=== PATIENT | female | born 1960 | race American Indian/Alaskan Native ===

== ENCOUNTER 2016-09-12 15:17 | Emergency (ER) | payer BC ==
[2016-09-12 16:19] LABS: Basophils % (Auto) 0.5 % (0.0-1.8); Eosinophils % (Auto) 1.1 % (0.0-4.3); Hematocrit 41.4 % (30.3-42.9); Hemoglobin 13.9 gm/dl (10.1-14.3); Mean Corpuscular HGB Conc 34 % (30-34); Mean Corpuscular Hemoglobin 32 pg (28-32); Mean Corpuscular Volume 94 fl (79-97); Platelet Count 233 K/mm3 (140-440); Red Blood Count 4.39 M/mm3 (3.65-5.03); Red Cell Distribution Width 12.8 % (13.2-15.2); White Blood Count 6.1 K/mm3 (4.5-11.0)
[2016-09-12 16:33] LABS: Partial Thromboplastin Time 31.1 Sec. (24.2-36.6)
[2016-09-12 16:38] LABS: Anion Gap 17 mmol/L; BUN/Creatinine Ratio 21.42; Blood Urea Nitrogen 15 mg/dL (7-17); Calcium 9.4 mg/dL (8.4-10.2); Carbon Dioxide 26 mmol/L (22-30); Chloride 100.2 mmol/L (98-107); Glucose 98 mg/dL (65-100); Potassium 3.9 mmol/L (3.6-5.0); Sodium 139 mmol/L (137-145)
--- NOTE | 2016-09-12 16:46 | Cat Scan Report ---
CT HEAD WITHOUT CONTRAST INDICATION: Numbness in both hands. COMPARISON: 07/19/2015. FINDINGS: Noncontrast head CT demonstrates normal ventricles and sulci without acute or recent infarct, hemorrhage, mass effect or midline shift. No abnormal extra-axial fluid collections. Posterior fossa structures and basilar cisterns appear within normal limits. Symmetric eye globes. Clear paranasal sinuses and mastoid air cells. Intact calvarium. Normal overlying scalp soft tissues. CONCLUSION: No acute intracranial CT abnormality, as described. Thank you for the opportunity to participate in this patient's care.
[2016-09-12 17:07] VITALS: BP 129/73
--- NOTE | 2016-09-12 17:26 | Emergency Department Report ---
ED General Adult HPI - General Chief complaint: Weakness Stated complaint: BLURRED VISION /TINGLING NUMBNESS IN HANDS Time Seen by Provider: 09/12/16 16:38 Source: patient, EMS (ems notes not available at time of chart dictation), RN notes reviewed, old records reviewed Mode of arrival: Stretcher Limitations: No Limitations - History of Present Illness Initial comments: This is a 56-year-old female. She is previously unknown to me. Her primary care doctor is Dr. Jennifer Bledsoe The patient reports a past medical history of hypertension and high cholesterol , and reports taking daily aspirin. 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 Minimal amount of plaque was noted. The patient was seen in consultation with vascular surgery at that time, who recommended 6 month follow-up. The patient has not followed up. The patient presents today with a complaint of resolved binocular blurry N/C vision, sensation of lightheadedness and almost passing out, and tingling around her fingertips. This lasted for a few minutes, and resolved on its own. There is no severe headache, neck pain, chest pain, abdominal pain or shortness of breath. The patient denies leg pain and leg swelling. No recent trips greater than 4 hours. No recent hospital admissions. All of her symptoms have since resolved. -: Sudden Severity scale (0 -10): 0 Consistency: now resolved Improves with: none Worsens with: none Associated Symptoms: malaise, syncope, weakness. denies: confusion, chest pain , cough, diaphoresis, loss of appetite - Related Data Previous Rx's Medication Instructions Recorded Last Taken Type Aspirin [Aspirin TAB] 325 mg PO QDAY #30 tablet 11/12/14 09/12/16 Rx Hydrochlorothiazide [HCTZ] 25 mg PO QDAY #30 tablet 11/12/14 09/12/16 Rx Simvastatin [Zocor TAB] 20 mg PO QHS #30 tablet 11/12/14 09/12/16 Rx Aspirin [Aspirin TAB] 325 mg PO QDAY #30 tablet 07/14/17 Unknown Rx Allergies Allergy/AdvReac Type Severity Reaction Status Date / Time No Known Allergies Allergy Verified 07/19/15 01:07 ED Review of Systems ROS: Stated complaint: BLURRED VISION /TINGLING NUMBNESS IN HANDS Other details as noted in HPI Constitutional: malaise. denies: fever Eyes: vision change ENT: denies: throat pain, epistaxis Respiratory: denies: cough Cardiovascular: syncope Gastrointestinal: denies: abdominal pain, nausea, diarrhea Genitourinary: denies: dysuria Musculoskeletal: denies: back pain Skin: denies: lesions Neurological: denies: numbness, paresthesias, abnormal gait Psychiatric: anxiety ED Past Medical Hx - Past Medical History Previous Medical History?: Yes Hx Hypertension: Yes Hx Congestive Heart Failure: No Hx Diabetes: No Hx Asthma: No Hx COPD: No - Surgical History Past Surgical History?: Yes Additional Surgical History: ovary remove - Social History Smoking Status: Never Smoker Substance Use Type: None - Medications Home Medications: Home Medications Medication Instructions Recorded Confirmed Last Taken Type Aspirin [Aspirin TAB] 325 mg PO QDAY #30 tablet 11/12/14 09/12/16 09/12/16 Rx Hydrochlorothiazide [HCTZ] 25 mg PO QDAY #30 tablet 11/12/14 09/12/16 09/12/16 Rx Simvastatin [Zocor TAB] 20 mg PO QHS #30 tablet 11/12/14 09/12/16 09/12/16 Rx Aspirin [Aspirin TAB] 325 mg PO QDAY #30 tablet 09/12/16 Unknown Rx ED Physical Exam - General Limitations: No Limitations General appearance: alert, in no apparent distress - Head Head exam: Present: atraumatic, normocephalic - Eye Eye exam: Present: normal appearance, PERRL, EOMI, other (visual acuity intact to finger counting, color perception, reading at a close distance). Absent: nystagmus - ENT ENT exam: Present: normal exam, normal orophraynx, mucous membranes moist, normal external ear exam - Neck Neck exam: Present: normal inspection, full ROM. Absent: tenderness, meningismus - Respiratory Respiratory exam: Present: normal lung sounds bilaterally. Absent: respiratory distress, wheezes, rales, rhonchi, stridor, chest wall tenderness, accessory muscle use, decreased breath sounds, prolonged expiratory - Cardiovascular Cardiovascular Exam: Present: regular rate, normal rhythm, normal heart sounds. Absent: systolic murmur, diastolic murmur, rubs, gallop - GI/Abdominal GI/Abdominal exam: Present: soft, normal bowel sounds. Absent: distended, tenderness, guarding, rebound, rigid, pulsatile mass - Extremities Exam Extremities exam: Present: normal inspection, full ROM, normal capillary refill. Absent: pedal edema, joint swelling, calf tenderness - Back Exam Back exam: Present: normal inspection, full ROM. Absent: tenderness, CVA tenderness (R), CVA tenderness (L), muscle spasm, paraspinal tenderness, vertebral tenderness - Neurological Exam Neurological exam: Present: alert, oriented X3, normal gait (normal gait. Normal tandem gait. Negative pronator drift. Normal [id number]. Negative Romberg examination), other (Extraocular movements intact. Tongue midline. No facial droop. Facial sensation intact to light touch in the V1, V2, V3 distribution bilaterally. 5 and 5 strength in 4 extremities.. Sensation is intact to light touch in 4 extremities.). Absent: motor sensory deficit - Psychiatric Psychiatric exam: Present: normal affect, normal mood - Skin Skin exam: Present: warm, dry, intact, normal color. Absent: rash ED Course Vital Signs 09/12/16 09/12/16 09/12/16 16:50 17:00 17:05 Temperature 98.1 F Pulse Rate 72 76 Respiratory 16 16 Rate Blood Pressure 129/73 [Left] O2 Sat by Pulse 98 Oximetry ED Medical Decision Making - Lab Data Result diagrams: 09/12/16 16:06 09/12/16 16:06 Vital Signs 09/12/16 09/12/16 09/12/16 16:50 17:00 17:05 Pulse Rate 72 76 Respiratory 16 16 Rate Blood Pressure 129/73 [Left] O2 Sat by Pulse 98 Oximetry Lab Results 09/12/16 09/12/16 09/12/16 Range/Units 16:06 16:06 16:06 WBC 6.1 (4.5-11.0) K/mm3 RBC 4.39 (3.65-5.03) M/mm3 Hgb 13.9 (10.1-14.3) gm/dl Hct 41.4 (30.3-42.9) % MCV 94 (79-97) fl MCH 32 (28-32) pg MCHC 34 (30-34) % RDW 12.8 L (13.2-15.2) % Plt Count 233 (140-440) K/mm3 Lymph % (Auto) 22.5 (13.4-35.0) % [place] % (Auto) 7.7 H (0.0-7.3) % Eos % (Auto) 1.1 (0.0-4.3) % Baso % (Auto) 0.5 (0.0-1.8) % Lymph # 1.4 (1.2-5.4) K/mm3 [place] # 0.5 (0.0-0.8) K/mm3 Eos # 0.1 (0.0-0.4) K/mm3 Baso # 0.0 (0.0-0.1) K/mm3 Seg Neutrophils % 68.2 (40.0-70.0) % Seg Neutrophils # 4.1 (1.8-7.7) K/mm3 PT 13.1 (12.2-14.9) Sec. INR 1.00 (0.87-1.13) APTT 31.1 (24.2-36.6) Sec. Thrombin Time (15.1-19.6) Sec. Sodium 139 (137-145) mmol/L Potassium 3.9 (3.6-5.0) mmol/L Chloride 100.2 (98-107) mmol/L Carbon Dioxide 26 (22-30) mmol/L Anion Gap 17 mmol/L BUN 15 (7-17) mg/dL Creatinine 0.7 (0.7-1.2) mg/dL Estimated GFR > 60 ml/min BUN/Creatinine Ratio 21.42 % Glucose 98 (65-100) mg/dL Calcium 9.4 (8.4-10.2) mg/dL Troponin T < 0.010 (0.00-0.029) ng/mL 09/12/16 Range/Units 16:06 WBC (4.5-11.0) K/mm3 RBC (3.65-5.03) M/mm3 Hgb (10.1-14.3) gm/dl Hct (30.3-42.9) % MCV (79-97) fl MCH (28-32) pg MCHC (30-34) % RDW (13.2-15.2) % Plt Count (140-440) K/mm3 Lymph % (Auto) (13.4-35.0) % [place] % (Auto) (0.0-7.3) % Eos % (Auto) (0.0-4.3) % Baso % (Auto) (0.0-1.8) % Lymph # (1.2-5.4) K/mm3 [place] # (0.0-0.8) K/mm3 Eos # (0.0-0.4) K/mm3 Baso # (0.0-0.1) K/mm3 Seg Neutrophils % (40.0-70.0) % Seg Neutrophils # (1.8-7.7) K/mm3 PT (12.2-14.9) Sec. INR (0.87-1.13) APTT (24.2-36.6) Sec. Thrombin Time 15.7 (15.1-19.6) Sec. Sodium (137-145) mmol/L Potassium (3.6-5.0) mmol/L Chloride (98-107) mmol/L Carbon Dioxide (22-30) mmol/L Anion Gap mmol/L BUN (7-17) mg/dL Creatinine (0.7-1.2) mg/dL Estimated GFR ml/min BUN/Creatinine Ratio % Glucose (65-100) mg/dL Calcium (8.4-10.2) mg/dL Troponin T (0.00-0.029) ng/mL - EKG Data -: EKG Interpreted by Ca EKG shows normal: sinus rhythm - EKG Data When compared to previous EKG there are: no significant change Interpretation: no acute changes 09/12/16 18:55 Normal sinus, 73 bpm, left axis deviation, incomplete right bundle branch block , QTC prolonged, abnormal EKG, not morphologically consistent with STEMI, appears unchanged when compared to prior EKG from 11/08/2014 - Radiology Data Radiology results: report reviewed, image reviewed Noncontrast CT scan of the brain is negative for acute disease - Medical Decision Making Differential diagnosis: Arrhythmia, structural cardiac disease, transient ischemic attack, acute coronary syndrome Assessment and plan: 56-year-old female with nonspecific complaint of visual change and tingling, lightheadedness and near syncope. Her symptoms have resolved. She is afebrile, with reassuring vital signs, has a GCS of 15, NIH score of 0, and is clinically sober. She has not followed up with outpatient vascular surgery. I strongly recommended admission for TIA/arrhythmia/near-syncope workup. There are no pulmonary embolus or DVT risk factors, the patient is low risk by well's criteria. The patient is not going to stay for her workup, and she is going to sign out AGAINST MEDICAL ADVICE. The risks of leaving, including , disability, paralysis, loss of quality of life were discussed extensively with the patient. The patient was able to articulate these risks in her own words, she exhibits decision-making capacity, and she is free from distracting injury. The patient understands that she can return to the ER right away if and when she changes her mind. This conversation is witnessed by nurse Jhonatan Osborne. Critical care attestation.: If time is entered above; I have spent that time in minutes in the direct care of this critically ill patient, excluding procedure time. ED Disposition Clinical Impression: Abnormal finding on EKG, Near syncope Disposition: [id number] LEFT AGAINST MED ADVICE Is pt being admited?: No Does the pt Need Aspirin: No Condition: Undetermined Instructions: Transient Ischemic Attack (ED), Near Syncope (ED) Additional Instructions: As we discussed, you have left the hospital/emergency room AGAINST MEDICAL ADVICE. By leaving, you risked , disability, paralysis, permanent loss of quality of life. The ER is open 24 hours a day, 7 days a week. It never closes. Please return to the emergency room right away if and when you change your mind. If you decide not to return to the emergency room, please follow-up with the listed physician referrals as soon as possible. Follow up with the vascular surgeon or head of digital advertising & integration as soon as possible. Do not drive her car or operate motor vehicles until cleared by either primary care or cardiology. Prescriptions: Aspirin [Aspirin TAB] 325 mg PO QDAY #30 tablet Referrals: LUIS CAN MD [Primary Care Provider] - 3-5 Days DANIELA WYATT MD [Staff Physician] - 3-5 Days CAMERON RAMIREZ MD [Staff Physician] - 3-5 Days TORRI PARIKH MD [Staff Physician] - 3-5 Days
== END 2016-09-12 19:00 | disposition left against medical advice (07) ==
LOC: ED 15:17
DX: R55 Syncope and collapse (principal); R94.31 Abnormal electrocardiogram [ECG] [EKG]; I10 Essential (primary) hypertension; E78.00 Pure hypercholesterolemia, unspecified; Z79.82 Long term (current) use of aspirin
CPT/HCPCS: 36415; 70450; 80048; 84484; 85025; 85610; 85670; 85730; 93005; 93010